=== PATIENT | male | born 1990 | race Two or more races ===

== ENCOUNTER 2016-12-14 21:47 | Emergency (ER) | payer SELFPAY ==
[~2016-12-14] VITALS: Ht 172.7 cm; Wt 90.3 kg
[2016-12-14] MEDS ORDERED: IBUPROFEN600 MG ORAL (22:26)
[2016-12-14 22:28] VITALS: BP 130/90
--- NOTE | 2016-12-14 22:36 | Emergency Room Report ---
History of Present Illness General Chief Complaint: Earache Source: Patient Present Illness HPI 26YOM with left earache for 4 hours. States pain radiated to left jaw. Denies fever/chills, headache, neck pain/stiffness. Also c/o similar pain but not as severe to right ear. No history of recurrent ear infections or sick contacts. + cleaning ears with Qtips. No recent swimming in pools, lakes, oceans. Took 800mg ibuprofen before coming and now pain much better. Allergies: Coded Allergies: No Known Allergies (Unverified , 12/14/16) Patient History Past Medical History: none Past Surgical History: none Pertinent Family History: none Social History: Denies: alcohol use, drug use, smoking Immunizations: UTD Reviewed Nursing Documentation: PMH: Agreed, PSxH: Agreed Nursing Documentation-PMH Past Medical History: No History, Except For Review of Systems All Other Systems: negative except mentioned in HPI Physical Exam Vital Signs Date Time Temp Pulse Resp B/P Pulse Ox O2 Delivery O2 Flow Rate FiO2 12/14/16 22:01 98.1 70 16 133/94 100 Room Air Sp02 EP Interpretation: reviewed, normal General Appearance: normal inspection, well appearing, no apparent distress, alert Head: normocephalic, atraumatic Eyes: bilateral eye EOMI, bilateral eye PERRL ENT: hearing grossly normal, normal pharynx, no angioedema, normal voice, other - Left TM with small amount of bleeding on non-perforated TM, Trauma to deep canal as well. No bulging of TM. Right TM with similar findings although not as severe Neck: normal inspection, full range of motion, supple, no bony tend Respiratory: normal inspection, lungs clear, normal breath sounds, no respiratory distress, no retraction, no wheezing Cardiovascular #1: regular rate, rhythm, no edema Gastrointestinal: normal inspection, normal bowel sounds, non tender, soft, no guarding, no hernia Genitourinary: no CVA tenderness Musculoskeletal: normal inspection, back normal, normal range of motion, Karl' s Sign negative Neurologic: normal inspection, alert, responsive, speech normal Psychiatric: normal inspection, judgement/insight normal, mood/affect normal Skin: normal inspection, normal color, no rash Medical Decision Making Diagnostic Impression: Primary Impression: Tympanic membrane inflammation Additional Impression: Tympanic membrane irritation Qualified Codes: H73.93 - Unspecified disorder of tympanic membrane, bilateral ER Course 26 YO M with likely traum to bilateral TMs from Qtip use. No sign of infection or perforation. VSS. Afebrile. Advised STOPPING Qtip use Continue ibuprofen V0onhit as needed for pain PMD followup Last Vital Signs Date Time Temp Pulse Resp B/P Pulse Ox O2 Delivery O2 Flow Rate FiO2 12/14/16 22:28 98.1 72 15 130/90 100 Room Air Status: improved Disposition: HOME, SELF-CARE Condition: Improved Scripts Ibuprofen* (MOTRIN*) 600 Mg Tablet 800 MG ORAL THREE TIMES A DAY, #30 TAB 0 Refills Prov: MERRICK HART M.D. 12/14/16 Patient Instructions: Earache Additional Instructions: - STOP using Qtips to clean ears - ears will clean themselves. if you need to, use eardrops - Take ibuprofen 800mg every 8 hours as needed for pain MERRICK HART M.D. Dec 14, 2016 22:36
[2016-12-14 22:46] VITALS: BP 130/90
== END 2016-12-14 23:00 | disposition home or self-care (01) ==
LOC: EMR 22:48
DX: H73.893 Other specified disorders of tympanic membrane, bilateral (principal)
CPT/HCPCS: 99283